=== PATIENT | female | born 1975 | race Caucasian/White ===

== ENCOUNTER 2019-07-14 | Emergency (ER) | payer SELFPAY ==
[2019-07-14 14:49] LABS: HEMATOCRIT 39.9 % (37.0-47.0); HEMOGLOBIN 13.5 g/dl (12.0-16.0); IMMATURE GRANULOCYTES 0.5 % (0.0-5.0); MEAN CELL VOLUME 92.1 fL CALC (80.0-100.0); MEAN CORPUSCULAR HGB 31.2 pG CALC (26.0-32.0); MEAN CORPUSCULAR HGB CONC 33.8 g/dL CAL (32.0-36.0); NEUT# 4.56 thou/uL (2.00-7.15); RED BLOOD COUNT 4.33 mill/uL (4.20-5.60); RED CELL DISTRI WIDTH 12.5 % (11.5-15.5)
[2019-07-14 15:05] LABS: ALBUMIN 4.1 g/dL (3.2-5.0); ALKALINE PHOSPHATASE 68 u/l (38-126); ANION GAP 11 (6-22 (CALC)); BILIRUBIN, TOTAL 0.4 mg/dL (0.0-1.4); BUN 13 mg/dL (7-17); BUN/CREATININE RATIO 20 (12-20 (CALC)); CARBON DIOXIDE 24 mmol/l (22-30); CHLORIDE 106 mmol/l (95-108); CREATININE 0.7 mg/dL (0.5-1.0); GFR > 60 ML/MIN (>=60 (CALC)); GFR FOR AFR.AMER. > 60 ML/MIN (>=60 (CALC)); POTASSIUM 4.4 mmol/l (3.5-5.1); SGOT/AST 25 u/l (14-36); SODIUM 137 mmol/l (137-146); TOTAL PROTEIN 7.2 g/dL (6.3-8.2)
[2019-07-14 15:23] LABS: ACT PARTIAL THROMBO TIME 25.1 SECONDS (20.0-32.5); INTERNATIONAL NORMALIZED RATIO 0.9 RATIO (0.7-1.3); PROTHROMBIN TIME 9.8 SECONDS (9.0-12.5)
[2019-07-14 15:36] LABS: MYOGLOBIN 24 ng/mL (0 - 62)
[2019-07-14] MEDS ORDERED: NAPROXEN500 MG PO (20:39)
[2019-07-14] MEDS ORDERED: ROBITUSSIN AC10 ML PO (20:39)
== END 2019-07-14 21:30 | disposition home or self-care (01) | DRG 153 ==
PROVIDERS: Emergency Medicine
DX: J06.9 Acute upper respiratory infection, unspecified (principal); Z20.828 Contact with and (suspected) exposure to other viral communicable diseases

== ENCOUNTER 2019-09-22 11:55 | Emergency (ER) | payer SELFPAY ==
[~2019-09-22 11:55] MED LIST: NAPROXEN500 MG PO; ROBITUSSIN AC10 ML PO
[2019-09-22 12:00] VITALS: BP 137/72
[2019-09-22] MEDS ORDERED: AMOX/K CLAV875 M1 PO (12:17)
[2019-09-22] MEDS ORDERED: HYDROCO/APAP1 TA9 PO (12:17)
[2019-09-22] MEDS ORDERED: CORTISPORIN OTI10 M2 AD (12:17)
== END 2019-09-22 12:25 | disposition home or self-care (01) | DRG 153 ==
LOC: ED 11:55
DX: H66.91 Otitis media, unspecified, right ear (principal); H60.91 Unspecified otitis externa, right ear; J32.9 Chronic sinusitis, unspecified

== ENCOUNTER 2020-04-05 21:36 | Observation (INO) | payer SELFPAY ==
[~2020-04-05] VITALS: Ht 170.2 cm; Wt 63.0 kg
[~2020-04-05 21:36] MED LIST changes: +AMOX/K CLAV875 M1 PO; +CORTISPORIN OTI10 M2 AD; +HYDROCO/APAP1 TA9 PO
[2020-04-05 22:57] LABS: HEMATOCRIT 38.3 % (37.0-47.0); HEMOGLOBIN 12.6 g/dl (12.0-16.0); IMMATURE GRANULOCYTES 1.2 % (0.0-5.0); MEAN CELL VOLUME 91.4 fL CALC (80.0-100.0); MEAN CORPUSCULAR HGB 30.1 pG CALC (26.0-32.0); MEAN CORPUSCULAR HGB CONC 32.9 g/dL CAL (32.0-36.0); NEUT# 25.9 thou/uL (2.00-7.15); RED BLOOD COUNT 4.19 mill/uL (4.20-5.60)
[2020-04-05 23:14] LABS: HCG SERUM/URINE (NEG/POS) NEGATIVE (NEGATIVE)
[2020-04-05 23:16] LABS: ALKALINE PHOSPHATASE 81 u/l (38-126); AMYLASE 66 u/l (30-110); ANION GAP 13 (6-22 (CALC)); BILIRUBIN, TOTAL 0.8 mg/dL (0.0-1.4); BUN 16 mg/dL (7-17); BUN/CREATININE RATIO 25 (12-20 (CALC)); CARBON DIOXIDE 21 mmol/l (22-30); CHLORIDE 103 mmol/l (95-108); CREATININE 0.6 mg/dL (0.5-1.0); GFR > 60 ML/MIN (>=60 (CALC)); GFR FOR AFR.AMER. > 60 ML/MIN (>=60 (CALC)); LIPASE 49 u/l (23-300); POTASSIUM 3.9 mmol/l (3.5-5.1); SGOT/AST 26 u/l (14-36); SODIUM 133 mmol/l (137-146); TOTAL PROTEIN 7.5 g/dL (6.3-8.2)
[2020-04-05 23:27] LABS: MYOGLOBIN 30 ng/mL (0 - 62)
--- NOTE | 2020-04-06 02:00 | NUR ---
PT RESTING. NAD. NO C/O AT THIS TIME.
--- NOTE | 2020-04-06 05:48 | NUR ---
PT SLEEPING. RESPS EVEN, UNLABBPRED
--- NOTE | 2020-04-06 07:00 | NUR ---
REPORT RECEIVED FROM AMINTA STEVE.
--- NOTE | 2020-04-06 07:45 | NUR ---
REPORT RECEIVED FROM AMINTA WICK, IN ER.
--- NOTE | 2020-04-06 08:10 | NUR ---
UPON ATTEMPTING TO DEPART PT, ABDOMINAL ASSESSMENT NOTED TO NOT HAVE BEEN COMPLETED ON PREVIOUS SHIFT. I DID NOT ASSESS THIS PT. PT ADMITTED UPSTAIRS TO [facility].
--- NOTE | 2020-04-06 08:17 | NUR ---
PT ARRIVED TO THE FLOOR VIA BED, ACCOMPANIED BY ER STAFF. PT ALERT AND ORIETNED. RESPIRATIONS ARE EVEN AND UNLABORED ON RA. LUNGS SOUND CLEAR. PEDAL PULSES ARE STRONG. PT REPORTS HAVING MODERATE ABDOMINAL PAIN, PT TO BE MEDICATED PER EMAR ORDERS. PT ORIENTED TO ROOM AND CALL REECE SYSTEM, SAFETY PECAUTIONS IN PLACE. WILL CONTINUE TO MONTIOR.
[2020-04-06 08:30] VITALS: BP 112/62
[2020-04-06 11:51] VITALS: BP 107/55
--- NOTE | 2020-04-06 12:00 | NUR ---
PT RESTING IN BED WITH EYES CLOSED. NO S/S OF DISTRESS AT THIS TIME. SAFETY PRECAUTIONS IN PLACE. WILL CONTINUE TO MONITOR.
[2020-04-06 14:45] VITALS: BP 111/58
--- NOTE | 2020-04-06 16:20 | NUR ---
PT SITTING ON SIDE OF THE BED, PT REPORTS HAVING MODERATE ABDOMINAL PAIN. PT TO BE MEDICATED PER EMAR ORDERS. SAFETY PRECAUTIONS IN PLACE. WILL CONTINUE TO MONITOR.
[2020-04-06 19:15] VITALS: BP 109/66
--- NOTE | 2020-04-06 20:39 | NUR ---
PT RESTING IN BED, NO SIGNS OF DISTRESS NOTED, RESP EVEN AND UNLABORED. PT ALERT AND ORIENTED X3, DISCUSSED POC, PT C/O PAIN MEDICATED PER MAR. ASSESSMENT COMPLETED. CALL LIGHT IN REACH,CONTINUE TO MONITOR.
--- NOTE | 2020-04-07 | NUR ---
PT RESTING IN BED WITH EYES CLOSED, NO SIGNS OF DISTRESS NOTED, RESP EVEN AND UNLABORED. CALL LIGHT IN REACH,CONTINUE TO MONITOR.
[2020-04-07 03:44] VITALS: BP 108/60
--- NOTE | 2020-04-07 05:35 | NUR ---
PT SITTING ON SIDE OF BED, CALLED DUE TO IV FALLING OUT, DISCUSSED NEW IV OBTAINED, PT TOLERATED WELL. CALL LIGHT IN REACH,CONTINUE TO MONITOR.
[2020-04-07 06:15] LABS: URINE BILIRUBIN - DIPSTICK NEGATIVE (NEGATIVE); URINE BLOOD DIPSTICK NEGATIVE (NEGATIVE); URINE COLOR YELLOW; URINE GLUCOSE - DIPSTICK NEGATIVE (NEGATIVE); URINE KETONE NEGATIVE (NEGATIVE); URINE LEUK ESTERASE TRACE (NEGATIVE); URINE NITRITE - DIPSTICK NEGATIVE (Negative); URINE PH 5.5 (4.5-8.0); URINE PROTEIN - DIPSTICK NEGATIVE (NEG-TRACE); URINE SPECIFIC GRAVITY 1.025
[2020-04-07 07:13] LABS: URINE RBC 0-2 RBC/hpf (0-5)
[2020-04-07 07:14] LABS: URINE SQUAMOUS EPITHELIAL CELL FEW EPI/hpf (0-FEW); URINE URIC ACID CRYSTALS FEW lpf
[2020-04-07 08:08] VITALS: BP 99/61
--- NOTE | 2020-04-07 08:08 | NUR ---
PT SITTING IN BED. A&O X3. NO DISTRESS NOTED. PT C/O OF ABD PAIN 8/10 SHARP IN DESCRIPTION. PT TOLERATING CLEAR DIET WELL. INFORMED PT OF NEEDED STOOL SAMPLE. PT VERBALIZED UNDERSTANDING. NO OTHER NEEDS AT THIS TIME. CALL LIGHT IN REACH. CONTINUE TO MONITOR.
[2020-04-07 08:39] LABS: MEAN CORPUSCULAR HGB 30.2 pG CALC (26.0-32.0); MEAN CORPUSCULAR HGB CONC 32.2 g/dL CAL (32.0-36.0); RED BLOOD COUNT 3.34 mill/uL (4.20-5.60); RED CELL DISTRI WIDTH 12.4 % (11.5-15.5)
[2020-04-07 08:48] LABS: HEMATOCRIT 31.4 % (37.0-47.0); HEMOGLOBIN 10.1 g/dl (12.0-16.0)
[2020-04-07 09:39] LABS: ALKALINE PHOSPHATASE 71 u/l (38-126); ANION GAP 9 (6-22 (CALC)); BILIRUBIN, TOTAL 0.7 mg/dL (0.0-1.4); BUN 13 mg/dL (7-17); BUN/CREATININE RATIO 19 (12-20 (CALC)); CARBON DIOXIDE 23 mmol/l (22-30); CHLORIDE 107 mmol/l (95-108); CREATININE 0.7 mg/dL (0.5-1.0); GFR > 60 ML/MIN (>=60 (CALC)); GFR FOR AFR.AMER. > 60 ML/MIN (>=60 (CALC)); POTASSIUM 3.7 mmol/l (3.5-5.1); SGOT/AST 14 u/l (14-36); SODIUM 135 mmol/l (137-146); TOTAL PROTEIN 5.4 g/dL (6.3-8.2)
[2020-04-07 09:40] LABS: ALBUMIN 2.8 g/dL (3.2-5.0)
[2020-04-07] MEDS ORDERED: METRONIDAZOL500 MG PO (10:00)
[2020-04-07] MEDS ORDERED: TRAMADOL HCL50 MG PO (10:00)
[2020-04-07] MEDS ORDERED: CIPROFLOXACN500 MG PO (10:00)
--- NOTE | 2020-04-07 11:53 | NUR ---
PT SLEEPING IN BED. NO DISTRESS NOTED. CONTINUE TO MONITOR.
[2020-04-07 15:30] VITALS: BP 121/65
--- NOTE | 2020-04-07 15:35 | NUR ---
IV INTACT UPON REMOVAL. CAB FEE TO BE PAID BY [facility] APPROVED BY CHERYL LEMOS.
--- NOTE | 2020-04-07 16:08 | NUR ---
Discharge instructions given. Patient verbalizes understanding of same. Prescriptions given. Discharged in stable condition via [facility] Home with staff. All belongings sent with pt.
== END 2020-04-07 16:06 | disposition home or self-care (01) | DRG 392 ==
LOC: ED 21:36 → ED-I 04-06 01:49 → ED 04-06 02:02 → MS2 04-06 02:03 → ED-I 04-06 02:03 → MS2 04-06 07:12
PROVIDERS: Family Medicine; Nurse Practitioner Family; ADMIT Internal Medicine; ATTEND Internal Medicine
DX: K52.9 Noninfective gastroenteritis and colitis, unspecified (principal); F17.210 Nicotine dependence, cigarettes, uncomplicated; Z20.828 Contact with and (suspected) exposure to other viral communicable diseases
CPT/HCPCS: G0378; J1650; Q9967

== ENCOUNTER 2021-02-07 12:23 | Emergency (ER) | payer SELFPAY ==
[~2021-02-07] VITALS: Ht 170.2 cm; Wt 81.0 kg
[~2021-02-07 12:23] MED LIST changes: +CIPROFLOXACN500 MG PO; +METRONIDAZOL500 MG PO; +TRAMADOL HCL50 MG PO
[2021-02-07 14:10] LABS: IMMATURE GRANULOCYTES 0.3 % (0.0-5.0); MEAN CELL VOLUME 93.6 fL CALC (80.0-100.0); MEAN CORPUSCULAR HGB 30.6 pG CALC (26.0-32.0); MEAN CORPUSCULAR HGB CONC 32.6 g/dL CAL (32.0-36.0); NEUT# 3.8 thou/uL (2.00-7.15); RED BLOOD COUNT 4.09 mill/uL (4.20-5.60); RED CELL DISTRI WIDTH 12.7 % (11.5-15.5)
[2021-02-07 14:11] LABS: HEMATOCRIT 38.3 % (37.0-47.0); HEMOGLOBIN 12.5 g/dl (12.0-16.0)
[2021-02-07 14:23] LABS: ALBUMIN 3.8 g/dL (3.2-5.0); ALKALINE PHOSPHATASE 61 u/l (38-126); ANION GAP 9 (6-22 (CALC)); BILIRUBIN, TOTAL 0.6 mg/dL (0.0-1.4); BUN 13 mg/dL (7-17); BUN/CREATININE RATIO 22 (12-20 (CALC)); CARBON DIOXIDE 27 mmol/l (22-30); CHLORIDE 105 mmol/l (95-108); CREATININE 0.6 mg/dL (0.5-1.0); GFR > 60 ML/MIN (>=60 (CALC)); GFR FOR AFR.AMER. > 60 ML/MIN (>=60 (CALC)); POTASSIUM 3.8 mmol/l (3.5-5.1); SGOT/AST 28 u/l (14-36); SODIUM 137 mmol/l (137-146); TOTAL PROTEIN 6.9 g/dL (6.3-8.2)
[2021-02-07] MEDS ORDERED: ZPAK PO (16:51)
[2021-02-07 17:10] VITALS: BP 142/84
== END 2021-02-07 17:10 | disposition home or self-care (01) | DRG 563 ==
LOC: ED 12:23
PROVIDERS: Physician Assistant Surgical
DX: M23.91 Unspecified internal derangement of right knee (principal); R50.9 Fever, unspecified; R52 Pain, unspecified; F17.210 Nicotine dependence, cigarettes, uncomplicated; Z20.822 Contact with and (suspected) exposure to COVID-19
CPT/HCPCS: L1830

== ENCOUNTER 2022-02-06 04:53 | Emergency (ER) | payer SELFPAY ==
[~2022-02-06] VITALS: Ht 170.2 cm; Wt 80.0 kg
[~2022-02-06 04:53] MED LIST changes: +ZPAK PO
[2022-02-06 05:01] VITALS: BP 163/88
[2022-02-06 05:30] VITALS: BP 161/117
[2022-02-06 06:01] VITALS: BP 142/84
[2022-02-06 06:15] VITALS: BP 141/95
[2022-02-06] MEDS ORDERED: AMOX/K CLAV875 M1 PO (07:42)
[2022-02-06] MEDS ORDERED: CYCLOBENZAPRINE10 MG PO (07:45)
[2022-02-06 07:47] VITALS: BP 141/95
== END 2022-02-06 07:57 | disposition home or self-care (01) | DRG 153 ==
LOC: ED 04:53
DX: H66.92 Otitis media, unspecified, left ear (principal); S09.90XA Unspecified injury of head, initial encounter; S00.412A Abrasion of left ear, initial encounter; Y04.0XXA Assault by unarmed brawl or fight, initial encounter; S40.012A Contusion of left shoulder, initial encounter

== ENCOUNTER 2022-04-12 02:32 | Emergency (ER) | payer SELFPAY ==
[~2022-04-12] VITALS: Ht 170.2 cm; Wt 75.0 kg
[~2022-04-12 02:32] MED LIST changes: +CYCLOBENZAPRINE10 MG PO
[2022-04-12 02:48] VITALS: BP 146/96
[2022-04-12 03:01] VITALS: BP 146/88
[2022-04-12 03:59] VITALS: BP 136/89
[2022-04-12 04:19] VITALS: BP 137/88
[2022-04-12 04:30] VITALS: BP 137/84
[2022-04-12 04:36] LABS: URINE BILIRUBIN - DIPSTICK NEGATIVE (NEGATIVE); URINE BLOOD DIPSTICK NEGATIVE (NEGATIVE); URINE CLARITY CLOUDY; URINE COLOR YELLOW; URINE GLUCOSE - DIPSTICK NEGATIVE (NEGATIVE); URINE KETONE NEGATIVE (NEGATIVE); URINE LEUK ESTERASE NEGATIVE (Negative); URINE NITRITE - DIPSTICK POSITIVE (Negative); URINE UROBILINOGEN - DIPSTICK 0.2 E.U./dL (0.2)
[2022-04-12 04:43] LABS: URINE PROTEIN - DIPSTICK NEGATIVE (NEG-TRACE)
[2022-04-12 04:45] LABS: URINE EPITHELIAL CELLS FEW EPI/hpf (0-FEW)
[2022-04-12 04:46] LABS: URINE BACTERIA MODERATE hpf; URINE MUCUS FEW hpf (NONE-FEW)
[2022-04-12] MEDS ORDERED: NAPROXEN500 MG PO (05:05)
[2022-04-12] MEDS ORDERED: CIPROFLOXACN500 MG PO (05:05)
[2022-04-12 05:34] VITALS: BP 123/82
== END 2022-04-12 05:52 | disposition home or self-care (01) | DRG 690 ==
LOC: ED 02:32
PROVIDERS: Emergency Medicine
DX: N39.0 Urinary tract infection, site not specified (principal); M25.522 Pain in left elbow; M79.605 Pain in left leg; Y04.2XXA Assault by strike against or bumped into by another person, initial encounter; F19.10 Other psychoactive substance abuse, uncomplicated; F17.200 Nicotine dependence, unspecified, uncomplicated

== ENCOUNTER 2024-06-01 12:11 | Emergency (ER) | payer SELFPAY ==
[~2024-06-01] VITALS: Ht 170.2 cm; Wt 84.9 kg
[~2024-06-01 12:11] MED LIST changes: +ALLERGY RE50 MCG/ACT; +VIBRAMYCIN100 M2 PO; +ZYRTEC10 MG PO
[2024-06-01 12:25] VITALS: BP 123/93
[2024-06-01 12:31] VITALS: BP 117/82
[2024-06-01] MEDS ORDERED: ZPAK PO (13:12)
[2024-06-01] MEDS ORDERED: MEDDOSEPAK PO (13:12)
[2024-06-01 13:49] VITALS: BP 117/82
== END 2024-06-01 13:54 | disposition home or self-care (01) | DRG 153 ==
LOC: ED 12:11
DX: J32.9 Chronic sinusitis, unspecified (principal); Z72.0 Tobacco use; Z20.822 Contact with and (suspected) exposure to COVID-19

== ENCOUNTER 2024-07-06 14:33 | Emergency (ER) | payer SELFPAY ==
[~2024-07-06] VITALS: Ht 170.2 cm; Wt 79.0 kg
[~2024-07-06 14:33] MED LIST changes: +MEDDOSEPAK PO
[2024-07-06 15:44] VITALS: BP 141/92
[2024-07-06 16:00] VITALS: BP 120/81
[2024-07-06] MEDS ORDERED: traMADol HCL 50 MG/TAB PO ONE (16:05)
[2024-07-06 16:35] VITALS: BP 115/84
[2024-07-06] MEDS ORDERED: AMOX/K CLAV875 M1 PO (16:49)
[2024-07-06 16:55] VITALS: BP 115/84
== END 2024-07-06 17:11 | disposition home or self-care (01) | DRG 153 ==
LOC: ED 14:33
DX: J32.9 Chronic sinusitis, unspecified (principal); F17.210 Nicotine dependence, cigarettes, uncomplicated; Z20.822 Contact with and (suspected) exposure to COVID-19